=== PATIENT | male | born 1960 | race African-American/Black ===

== ENCOUNTER 2022-01-26 21:26 | Inpatient (IN) | payer SELFPAY ==
[~2022-01-26] VITALS: Ht 170.2 cm; Wt 72.6 kg
[2022-01-26] MEDS ORDERED: IV NORMAL SALINE 1000ML BAG 1,000 ML IV ONE (22:30)
[2022-01-26] MEDS ORDERED: fentaNYL PF VIAL 100 MCG/2 ML VIAL IVP ONE (22:30)
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
[2022-01-26] MEDS ORDERED: diphenhydrAMINE 50 MG/ML VIAL IM ONE (23:30)
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
[2022-01-27] MEDS ORDERED: HALOPERIDOL LACTATE 5 MG/ML VIAL. IM ONE (02:00)
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
[2022-01-27 03:01] LABS: BASO % 0 % (0-3); EOS % 0 % (0-3); HEMATOCRIT 40.7 % (39.0-53.0); HEMOGLOBIN 13.2 g/dL (13.0-17.5); LYMPH # 0.7 x10^3/uL (1.0-4.8); LYMPH % 8 % (24-48); MEAN CORPUSCULAR HEMOGLOBIN 28 pg (25-35); MEAN CORPUSCULAR HGB CONC 33 g/dL (31-37); MEAN CORPUSCULAR VOLUME 86 fL (79-100); MONO # 0.6 x10^3/uL (0.0-1.1); MONO % 7 % (0-9); NEUT # 7.5 x10^3/uL (1.8-7.7); NEUT % 85 % (31-73); PLATELET COUNT 147 x10^3/uL (140-400); RED BLOOD COUNT 4.76 x10^6/uL (4.30-5.70); RED CELL DISTRIBUTION WIDTH 15.9 % (11.5-14.5); WHITE BLOOD COUNT 8.8 x10^3/uL (4.0-11.0)
[2022-01-27 03:16] LABS: CALCIUM 8.8 mg/dL (8.5-10.1); CREATININE 1.3 mg/dL (0.7-1.3); GFR 67.9; POTASSIUM 3.9 mmol/L (3.5-5.1)
[2022-01-27 03:22] LABS: ALBUMIN 4.1 g/dL (3.4-5.0); ALBUMIN/GLOBULIN RATIO 0.9 (1.0-1.7); MAGNESIUM 2.1 mg/dL (1.8-2.4); TOTAL BILIRUBIN 0.9 mg/dL (0.2-1.0); TOTAL PROTEIN 8.8 g/dL (6.4-8.2)
[2022-01-27] MEDS ORDERED: IV NORMAL SALINE 1000ML BAG 1,000 ML IV ONE ×2 (14:45)
[2022-01-27] MEDS ORDERED: ACETAMINOPHEN 325 MG TABLET. PO PRN (14:45)
[2022-01-27] MEDS ORDERED: ONDANSETRON PF 4 MG/2 ML VIAL. IVP PRN (14:45)
[2022-01-27 16:48] VITALS: BP 142/86
--- NOTE | 2022-01-27 16:56 | NUR ---
Patient received from ED at 1530 per stretcher, telmetry placed on patient, IV fluids started in #20 to right forearm, patient alert only to self and is very sedated, unable to complete admission information, patient unable to answer questions.
[2022-01-27 19:00] VITALS: BP 138/81
--- NOTE | 2022-01-27 19:03 | HP ---
DATE OF SERVICE: 01/27/2022 ADMIT DATE: 01/27/2022 CHIEF COMPLAINT: Mechanical fall and neck pain. HISTORY OF PRESENT ILLNESS: The patient is a pleasant 61-year-old male who came in by ambulance. He has been "hitting meth really hard." He has been doing that for several days. He came to the ER for evaluation. While in the ER, we noticed that his CPK level is 20,000. I discussed the case with ER physician. We are going to admit the patient and give him IV fluids for his rhabdomyolysis. PAST MEDICAL HISTORY: Severe methamphetamine abuse. ALLERGIES: None. FAMILY HISTORY: Diabetes. SOCIAL HISTORY: He smokes, drinks, and takes drugs. MEDICATIONS: Reviewed, please refer to the MRAD. REVIEW OF SYSTEMS: Difficult to obtain he is too sleepy. PHYSICAL EXAMINATION: VITALS: Within normal limits and are stable. GENERAL: He is sleeping. He barely wakes up. HEENT: Normal cephalic atraumatic, external auditory canals are patent EYES: Extraocular muscles are intact, pupils are equally round and reactive to light and accommodation MUSCULOSKELETAL: Well developed, well nourished, good range of motion ENDOCRINE: No thyromegaly was palpated LYMPHATICS: No cervical chain or axillary nodes were noted HEMATOPOIETIC: No bruising NECK: Supple, no JVD, no thyromegaly was noted. LUNGS: Clear to auscultation in all lung cantu without rhonchi or wheezing. HEART: RRR, S1, S2 present. Peripheral pulses intact, no obvious murmurs were noted. ABDOMEN: Soft, nontender. Positive bowel sounds no organomegaly, normal bowel sounds. EXTREMITIES: Without any cyanosis, clubbing, or edema. Pedal pulses intact, Homans sign is negative. NEUROLOGIC: He is sleeping. PSYCHIATRIC: He is sleeping. SKIN: No ulcerations or rashes, good skin turgor, no jaundice. VASCULAR: Good capillary refill, neurovascular bundle appears to be intact. LABORATORY DATA: CPK 20,571. ASSESSMENT AND PLAN: Severe rhabdomyolysis secondary to methamphetamine abuse. The patient will be admitted. We will start IV fluids, home meds. DVT prophylaxis. Full code. P.r.n. Tylenol. Trend labs. NKJohnathon/RUKHSANA DR: SUNIL/carlos TID: [id number]
[2022-01-27 19:12] LABS: BASO % 0 % (0-3); EOS % 0 % (0-3); HEMATOCRIT 36.3 % (39.0-53.0); HEMOGLOBIN 11.8 g/dL (13.0-17.5); LYMPH # 1.4 x10^3/uL (1.0-4.8); LYMPH % 16 % (24-48); MEAN CORPUSCULAR HEMOGLOBIN 28 pg (25-35); MEAN CORPUSCULAR HGB CONC 33 g/dL (31-37); MEAN CORPUSCULAR VOLUME 86 fL (79-100); MONO # 0.7 x10^3/uL (0.0-1.1); MONO % 8 % (0-9); NEUT # 6.6 x10^3/uL (1.8-7.7); NEUT % 75 % (31-73); PLATELET COUNT 133 x10^3/uL (140-400); RED BLOOD COUNT 4.22 x10^6/uL (4.30-5.70); RED CELL DISTRIBUTION WIDTH 16.1 % (11.5-14.5); WHITE BLOOD COUNT 8.8 x10^3/uL (4.0-11.0)
[2022-01-27 19:23] LABS: CALCIUM 7.3 mg/dL (8.5-10.1); GFR 91.9; POTASSIUM 3.6 mmol/L (3.5-5.1)
[2022-01-27 19:37] LABS: ALBUMIN 2.9 g/dL (3.4-5.0); ALBUMIN/GLOBULIN RATIO 0.7 (1.0-1.7); MAGNESIUM 1.9 mg/dL (1.8-2.4); TOTAL BILIRUBIN 0.5 mg/dL (0.2-1.0); TOTAL PROTEIN 7.1 g/dL (6.4-8.2)
[2022-01-27] MEDS: IV NORMAL SALINE 1000ML BAG 1,000 ML IV SCH ×2 (19:45→20:15)
[2022-01-28] MEDS: MORPHINE SULFATE 2 MG/ML INJ. IV PRN ×2 (00:46→22:26)
[2022-01-28] MEDS: IV NORMAL SALINE 1000ML BAG 1,000 ML IV SCH ×5 (00:46→20:17)
[2022-01-28 03:00] VITALS: BP 134/78
[2022-01-28 07:00] VITALS: BP 135/82
[2022-01-28 10:11] LABS: BASO % 0 % (0-3); EOS % 1 % (0-3); HEMATOCRIT 35.4 % (39.0-53.0); HEMOGLOBIN 11.6 g/dL (13.0-17.5); LYMPH # 1.1 x10^3/uL (1.0-4.8); LYMPH % 16 % (24-48); MEAN CORPUSCULAR HEMOGLOBIN 28 pg (25-35); MEAN CORPUSCULAR HGB CONC 33 g/dL (31-37); MEAN CORPUSCULAR VOLUME 86 fL (79-100); MONO # 0.7 x10^3/uL (0.0-1.1); MONO % 10 % (0-9); NEUT # 5.1 x10^3/uL (1.8-7.7); NEUT % 73 % (31-73); PLATELET COUNT 134 x10^3/uL (140-400); RED BLOOD COUNT 4.13 x10^6/uL (4.30-5.70); RED CELL DISTRIBUTION WIDTH 15.9 % (11.5-14.5)
[2022-01-28 10:27] LABS: ALBUMIN 2.7 g/dL (3.4-5.0); ALBUMIN/GLOBULIN RATIO 0.7 (1.0-1.7); CALCIUM 7.6 mg/dL (8.5-10.1); CREATININE 0.9 mg/dL (0.7-1.3); GFR 103.8; POTASSIUM 3.7 mmol/L (3.5-5.1); TOTAL BILIRUBIN 0.5 mg/dL (0.2-1.0); TOTAL PROTEIN 6.7 g/dL (6.4-8.2)
[2022-01-28 11:00] VITALS: BP 136/67
[2022-01-28 13:09] LABS: AMPHETAMINE/METHAMPHETAMINE POS (NEG); BARBITURATES NEG (NEG); BENZODIAZEPINES NEG (NEG); CANNABINOIDS NEG (NEG); COCAINE NEG (NEG); METHADONE NEG (NEG); OPIATES POS (NEG); PHENCYCLIDINE NEG (NEG)
[2022-01-28 15:00] VITALS: BP 132/92
--- NOTE | 2022-01-28 15:56 | NUR ---
This nurse attempted to complete admission information, patient states, "I can't remember any of that". Patient only able to say that he lives with a friend named Valery. Still very drowsy and only oriented to self.
[2022-01-28 19:45] VITALS: BP 146/80
[2022-01-28] MEDS: MORPHINE SULFATE 4 MG/ML INJ. IV PRN (20:12)
--- NOTE | 2022-01-28 23:08 | PDOC ---
[facility] [facility] PROGRESS NOTE Date of Service DOS: DATE: 01/28/22 TIME: 23:07 Chief Complaint Chief Complaint Severe rhabdomyolysis secondary to methamphetamine abuse. The patient will be admitted. We will start IV fluids, home meds. DVT prophylaxis. Full code. P.r.n. Tylenol. Trend labs. History of Present Illness History of Present Illness 01/28 Patient evaluated examined at bedside. Pretty lethargic today. [place] around [address]. Continue fluids. If continues to trend down can likely discharge home tomorrow. Vitals/I&O Vitals/I&O: Vital Signs Date Time Temp Pulse Resp B/P (MAP) Pulse Ox O2 Delivery O2 Flow Rate FiO2 01/28/22 22:26 16 92 Room Air 01/28/22 19:45 100.9 84 146/80 (102) 100.9 I & O 01/27/22 01/27/22 01/28/22 15:00 23:00 07:00 Intake Total 1200 ml 1200 ml Output Total 450 ml Balance 1200 ml 750 ml Physical Exam General: Alert, Cooperative Heart: Regular rate Lungs: Clear Abdomen: Normal bowel sounds, Soft, No tenderness Extremities: No edema, Normal pulses Skin: No significant lesion Labs Labs: Laboratory Tests Test 01/28/22 09:15 01/28/22 11:29 White Blood Count 7.0 x10^3/uL (4.0-11.0) Red Blood Count 4.13 x10^6/uL (4.30-5.70) Hemoglobin 11.6 g/dL (13.0-17.5) Hematocrit 35.4 % (39.0-53.0) Mean Corpuscular Volume 86 fL (79-100) Mean Corpuscular Hemoglobin 28 pg (25-35) Mean Corpuscular Hemoglobin Concent 33 g/dL (31-37) Red Cell Distribution Width 15.9 % (11.5-14.5) Platelet Count 134 x10^3/uL (140-400) Neutrophils (%) (Auto) 73 % (31-73) Lymphocytes (%) (Auto) 16 % (24-48) Monocytes (%) (Auto) 10 % (0-9) Eosinophils (%) (Auto) 1 % (0-3) Basophils (%) (Auto) 0 % (0-3) Neutrophils # (Auto) 5.1 x10^3/uL (1.8-7.7) Lymphocytes # (Auto) 1.1 x10^3/uL (1.0-4.8) Monocytes # (Auto) 0.7 x10^3/uL (0.0-1.1) Eosinophils # (Auto) 0.0 x10^3/uL (0.0-0.7) Basophils # (Auto) 0.0 x10^3/uL (0.0-0.2) Sodium Level 136 mmol/L (136-145) Potassium Level 3.7 mmol/L (3.5-5.1) Chloride Level 105 mmol/L (98-107) Carbon Dioxide Level 27 mmol/L (21-32) Anion Gap 4 (6-14) Blood Urea Nitrogen 8 mg/dL (8-26) Creatinine 0.9 mg/dL (0.7-1.3) Estimated GFR (Cockcroft-Gault) 103.8 BUN/Creatinine Ratio 9 (6-20) Glucose Level 153 mg/dL (70-99) Calcium Level 7.6 mg/dL (8.5-10.1) Total Bilirubin 0.5 mg/dL (0.2-1.0) Aspartate Amino Transf (AST/SGOT) 78 U/L (15-37) Alanine Aminotransferase (ALT/SGPT) 92 U/L (16-63) Alkaline Phosphatase 60 U/L (46-116) Creatine Kinase 7668 U/L (39-308) Total Protein 6.7 g/dL (6.4-8.2) Albumin 2.7 g/dL (3.4-5.0) Albumin/Globulin Ratio 0.7 (1.0-1.7) Urine Opiates Screen Pos (NEG) Urine Methadone Screen Neg (NEG) Urine Barbiturates Neg (NEG) Urine Phencyclidine Screen Neg (NEG) Urine Amphetamine/Methamphetamine Pos (NEG) Urine Benzodiazepines Screen Neg (NEG) Urine Cocaine Screen Neg (NEG) Urine Cannabinoids Screen Neg (NEG) Urine Ethyl Alcohol Neg (NEG) Assessment and Plan Assessmemt and Plan Problems Medical Problems: (1) Altered mental status Status: Acute Comment Review of Relevant I have reviewed the following items sera (where applicable) has been applied. Medications: Current Medications Medications (Trade) Dose Ordered Sig/Donal Route PRN Reason Start Time Stop Time Status Last Admin Dose Admin Sodium Chloride 1,000 ml @ 200 mls/hr Q5H IV 01/28/22 16:30 01/28/22 20:17 Justifications for Admission Other Justification LEONARDO MORALES MD Jan 28, 2022 23:08
[2022-01-28 23:14] VITALS: BP 142/81
[2022-01-29] MEDS: MORPHINE SULFATE 4 MG/ML INJ. IV PRN ×2 (03:00→14:51)
[2022-01-29] MEDS: IV NORMAL SALINE 1000ML BAG 1,000 ML IV SCH ×5 (03:00→22:01)
[2022-01-29 03:43] VITALS: BP 153/79
[2022-01-29 07:00] VITALS: BP 141/72
--- NOTE | 2022-01-29 09:46 | PDOC ---
[employer] [facility] PROGRESS NOTE Date of Service DOS: DATE: 01/29/22 TIME: 08:58 Chief Complaint Chief Complaint Severe rhabdomyolysis secondary to methamphetamine abuse. The patient will be admitted. We will start IV fluids, home meds. DVT prophylaxis. Full code. P.r.n. Tylenol. Trend labs. History of Present Illness History of Present Illness 01/28 Patient evaluated examined at bedside. Pretty lethargic today. [place] [address]. Continue fluids. If continues to trend down can likely discharge home tomorrow. 01/29: CK 4604. Had epistaxis overnight. He is recent thoughts. Tells me that he is just out of the domiciliary and is an [employer] . States he is not in a good mental place right now and is felt like he would immediately relapse with alcohol and drugs. He is asking for psychiatric help. Having some diffuse myalgias and weakness today. Vitals/I&O Vitals/I&O: Vital Signs Date Time Temp Pulse Resp B/P (MAP) Pulse Ox O2 Delivery O2 Flow Rate FiO2 01/29/22 07:00 100.1 82 16 141/72 (95) 92 Room Air 100.1 I & O 01/28/22 01/28/22 01/29/22 15:00 23:00 07:00 Intake Total 240 ml 600 ml Output Total 1500 ml 550 ml Balance -1260 ml 50 ml Physical Exam General: Alert, Cooperative Heart: Regular rate Lungs: Clear Abdomen: Normal bowel sounds, Soft, No tenderness Extremities: No edema, Normal pulses Skin: No significant lesion Labs Labs: Laboratory Tests Test 01/28/22 09:15 01/28/22 11:29 01/29/22 06:30 White Blood Count 7.0 x10^3/uL (4.0-11.0) Red Blood Count 4.13 x10^6/uL (4.30-5.70) Hemoglobin 11.6 g/dL (13.0-17.5) Hematocrit 35.4 % (39.0-53.0) Mean Corpuscular Volume 86 fL (79-100) Mean Corpuscular Hemoglobin 28 pg (25-35) Mean Corpuscular Hemoglobin Concent 33 g/dL (31-37) Red Cell Distribution Width 15.9 % (11.5-14.5) Platelet Count 134 x10^3/uL (140-400) Neutrophils (%) (Auto) 73 % (31-73) Lymphocytes (%) (Auto) 16 % (24-48) Monocytes (%) (Auto) 10 % (0-9) Eosinophils (%) (Auto) 1 % (0-3) Basophils (%) (Auto) 0 % (0-3) Neutrophils # (Auto) 5.1 x10^3/uL (1.8-7.7) Lymphocytes # (Auto) 1.1 x10^3/uL (1.0-4.8) Monocytes # (Auto) 0.7 x10^3/uL (0.0-1.1) Eosinophils # (Auto) 0.0 x10^3/uL (0.0-0.7) Basophils # (Auto) 0.0 x10^3/uL (0.0-0.2) Sodium Level 136 mmol/L (136-145) Potassium Level 3.7 mmol/L (3.5-5.1) Chloride Level 105 mmol/L (98-107) Carbon Dioxide Level 27 mmol/L (21-32) Anion Gap 4 (6-14) Blood Urea Nitrogen 8 mg/dL (8-26) Creatinine 0.9 mg/dL (0.7-1.3) Estimated GFR (Cockcroft-Gault) 103.8 BUN/Creatinine Ratio 9 (6-20) Glucose Level 153 mg/dL (70-99) Calcium Level 7.6 mg/dL (8.5-10.1) Total Bilirubin 0.5 mg/dL (0.2-1.0) Aspartate Amino Transf (AST/SGOT) 78 U/L (15-37) Alanine Aminotransferase (ALT/SGPT) 92 U/L (16-63) Alkaline Phosphatase 60 U/L (46-116) Creatine Kinase 7668 U/L (39-308) 4605 U/L (39-308) Total Protein 6.7 g/dL (6.4-8.2) Albumin 2.7 g/dL (3.4-5.0) Albumin/Globulin Ratio 0.7 (1.0-1.7) Urine Opiates Screen Pos (NEG) Urine Methadone Screen Neg (NEG) Urine Barbiturates Neg (NEG) Urine Phencyclidine Screen Neg (NEG) Urine Amphetamine/Methamphetamine Pos (NEG) Urine Benzodiazepines Screen Neg (NEG) Urine Cocaine Screen Neg (NEG) Urine Cannabinoids Screen Neg (NEG) Urine Ethyl Alcohol Neg (NEG) Assessment and Plan Assessmemt and Plan Problems Medical Problems: (1) Altered mental status Status: Acute Comment Review of Relevant I have reviewed the following items sera (where applicable) has been applied. Medications: Current Medications Medications (Trade) Dose Ordered Sig/Donal Route PRN Reason Start Time Stop Time Status Last Admin Dose Admin Sodium Chloride 1,000 ml @ 200 mls/hr Q5H IV 01/28/22 16:30 01/29/22 07:30 Justifications for Admission Other Justification LEONARDO HEALY MD Jan 29, 2022 09:46
[2022-01-29 11:00] VITALS: BP 155/88
--- NOTE | 2022-01-29 11:46 | EKG ---
[facility] [address] [place] [address] Test Date: 2022-01-27 Test Time: 01:05:17 Pat Name: JO RO Department: Room: [facility] Gender: M Hand Bender: : 1960 Requested By: ANGELA MCGARRY Order Number: [id number] Reading MD: Darin Romo Measurements Intervals [place] Rate: 83 P: 80 WA: 152 QRS: 51 QRSD: 62 T: 50 QT: 350 QTc: 412 Interpretive Statements SINUS RHYTHM QRS(T) CONTOUR ABNORMALITY CONSISTENT WITH ANTERIOR INFARCT PROBABLY OLD ABNORMAL ECG RI6.02 No previous ECG available for comparison Electronically Signed On 02-02-2022 14:12:50 CDT by Darin Romo
--- NOTE | 2022-01-29 13:13 | NUR ---
SW following. Discussed with RN, pt from home with a friend, room air, regular diet. PAT consult for psychotic thoughts. Awaiting outcome. SW will continue to follow.
[2022-01-29 15:00] VITALS: BP 147/84
[2022-01-29 19:59] VITALS: BP 150/85
[2022-01-29] MEDS: MORPHINE SULFATE 2 MG/ML INJ. IV PRN (22:00)
--- NOTE | 2022-01-30 00:25 | NUR ---
Pt had been taking off his tele monitor.
[2022-01-30 03:18] VITALS: BP 143/82
[2022-01-30] MEDS: IV NORMAL SALINE 1000ML BAG 1,000 ML IV SCH ×3 (03:30→12:34)
--- NOTE | 2022-01-30 04:40 | NUR ---
Pt pulled out IV, took off tele leads then went to shower though he had a bath already last night. Attempted to start another IV, REFUSED. Pt also refused lab draw this morning.
[2022-01-30 07:00] VITALS: BP 145/83
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
--- NOTE | 2022-01-30 10:09 | PDOC3 ---
Discharge Summary Visit Information Date of Admission: Jan 27, 2022 Date of Discharge: Jan 30, 2022 Admitting Diagnosis: Acute encephalopathy Final Diagnosis Problems Medical Problems: (1) Altered mental status Status: Acute Brief Hospital Course Allergies Allergies Coded Allergies Type Severity Reaction Last Updated Verified No Known Drug Allergies 01/26/22 No Vital Signs Vital Signs Date Time Temp Pulse Resp B/P (MAP) Pulse Ox O2 Delivery O2 Flow Rate FiO2 01/30/22 08:00 Room Air 01/30/22 07:00 98.9 66 15 145/83 (103) 95 98.9 Lab Results Laboratory Tests Test 01/28/22 11:29 01/29/22 06:30 Urine Opiates Screen Pos (NEG) Urine Methadone Screen Neg (NEG) Urine Barbiturates Neg (NEG) Urine Phencyclidine Screen Neg (NEG) Urine Amphetamine/Methamphetamine Pos (NEG) Urine Benzodiazepines Screen Neg (NEG) Urine Cocaine Screen Neg (NEG) Urine Cannabinoids Screen Neg (NEG) Urine Ethyl Alcohol Neg (NEG) Creatine Kinase 4605 U/L ([id number]) Brief Hospital Course Mr Crowley is a 61yo male with no known past medical history who was brought into ED by EMS when he was found laying down twitching next bicycle past. He was hallucinating actively. Noted ED staff that he was using methamphetamines. Found with CPK greater than 20,000 and diffuse myalgias admitted for further care and IV fluids. CT head neck with no acute abnormalities. 01/28: Patient evaluated examined at bedside. Pretty lethargic today. [place] [address]. Continue fluids. If continues to trend down can likely discharge home tomorrow. 01/29: CK 4604. Had epistaxis overnight. He is recent thoughts. Tells me that he is just out of the domiciliary and is an [employer] . States he is not in a good mental place right now and is felt like he would immediately relapse with alcohol and drugs. He is asking for psychiatric help. Having some diffuse myalgias and weakness today. 01/30: More alert today. He pulled out his IV and is asking what the plan is for today. He notes he would like to be able to go home [facility] He notes he may have had a less than honorable discharge and knows how to have follow-up outpatient. Counseled on methamphetamine abstinence. He notes he does not drink alcohol. Given addiction resources and information at the guidance Center in [place]. 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 Acute encephalopathy - due to metabolic, amphetamine intoxication Transaminitis - due to rhabdo Moderate protein calorie malnutrition - due to meth abuse Greater than 30 minutes spent on d/c home with outpatient addiction follow up Discharge Information Condition at Discharge: Improved Follow Up: Weeks (1) Disposition/Orders: D/C to Home No Active Prescriptions or Reported Meds Justicifation of Admission Dx: Justifications for Admission: Justification of Admission Dx: Yes LEONARDO HEALY MD Jan 30, 2022 10:09
[2022-01-30 11:00] VITALS: BP 124/82
--- NOTE | 2022-01-30 12:28 | NUR ---
SW following. Discussed with RN, pt seen by Dean ([facility]), pt follows with the [place] and is open with [facility] - Dean is notifying [facility] and will get case management services arranged. Discharge order for home with self care. Pt wanting to discharge to [employer] to get his phone fixed. SW advised RN to obtain cab pass for this. No further SW needs identified.
--- NOTE | 2022-01-30 14:05 | NUR ---
Discharge Note: PT DISCHARGED HOME WITH SELF CARE. PT WAITING FOR FAMILY AT MAIN ENTRANCE FOR FAMILY TO BULLARD OPERATOR AT 1345. PT REFUSED TO WAIT IN HOSPITAL ROOM FOR FAMILY TO BULLARD OPERATOR. PT STABLE AND ALERT UPON DISCHARGE. PT PIV REMOVED. PT TELE MONITOR REMOVED. PT EDUCATED ABOUT DISCHARGE INSTRUCTIONS, DISCHARGE MEDICATIONS, AND FOLLOW-UP CARE INSTRUCTIONS, NO CONCERNS VOICED AT THIS TIME. PT LEFT WITH ALL PERSONAL BELONGINGS. MARTHA RO Discharge instructions and discharge home medications reviewed with Patient and a copy given. All questions have been answered and understanding verbalized.
[2022-01-30 16:02] LABS: ALBUMIN 2.7 g/dL (3.4-5.0); ALBUMIN/GLOBULIN RATIO 0.7 (1.0-1.7); CALCIUM 8.4 mg/dL (8.5-10.1); GFR 91.9; POTASSIUM 3.6 mmol/L (3.5-5.1); TOTAL BILIRUBIN 0.3 mg/dL (0.2-1.0); TOTAL PROTEIN 6.8 g/dL (6.4-8.2)
== END 2022-01-30 13:45 | disposition home or self-care (01) | DRG 917 ==
LOC: ER 21:26 → 5 NORTH 01-27 14:56
PROVIDERS: ADMIT Internal Medicine; ATTEND Internal Medicine
DX: T43.621A Poisoning by amphetamines, accidental (unintentional), initial encounter (principal); G93.41 Metabolic encephalopathy; M62.82 Rhabdomyolysis; E44.0 Moderate protein-calorie malnutrition; F15.10 Other stimulant abuse, uncomplicated; F15.129 Other stimulant abuse with intoxication, unspecified; F17.200 Nicotine dependence, unspecified, uncomplicated; R74.01 Elevation of levels of liver transaminase levels; Z68.25 Body mass index [BMI] 25.0-25.9, adult; Z83.3 Family history of diabetes mellitus; Y92.89 Other specified places as the place of occurrence of the external cause
CPT/HCPCS: 36415; 70450; 72125; 73110; 80053; 80307; 82550; 82962; 83735; 83874; 83880; 84100; 84484; 85025; 93005; 96372; G0480; J1200; J1630; J2060; J2270; J7030; 99285-25; G0378